=== PATIENT | male | born 1935 | race Caucasian/White ===

== ENCOUNTER 2016-02-19 10:06 | Day surgery (SDC) | payer MEDICARE ==
[2016-02-19] MEDS ORDERED: CEFAZOLIN SODIUM 2 GRAM PREMIX 100 ML IV PRN (10:30)
[2016-02-19] MEDS ORDERED: CEFAZOLIN SODIUM 2 GRAM PREMIX 100 ML IV ONE (11:26)
[2016-02-19] MEDS ORDERED: IV START KIT ONE (11:26)
[2016-02-19] MEDS ORDERED: LACTATED RINGERS 1,000 ML ONE ×2 (11:26→15:25)
[2016-02-19] MEDS ORDERED: MIDAZOLAM HCL 1 MG/ML 2ML VIAL ONE ×2 (12:30→13:49)
[2016-02-19] MEDS ORDERED: MIDAZOLAM HCL 5 MG/5 ML VIAL IV ONE (13:03)
[2016-02-19] MEDS ORDERED: OPIUM/BELLADONNA ALKALOIDS 1 EACH SUP PR ONE (13:45)
[2016-02-19] MEDS ORDERED: SPINAL PROCEDURAL TRAY 1 EACH ONE (13:47)
[2016-02-19] MEDS ORDERED: FENTANYL 5 ML ONE (13:49)
[2016-02-19] MEDS ORDERED: PROPOFOL 20 ML IV ONE (14:09)
[2016-02-19] MEDS ORDERED: ATROPINE SULFATE 0.4 MG/1 ML VIAL IV PRN (14:16)
[2016-02-19] MEDS ORDERED: FENTANYL 100 MCG/2 ML VIAL IV PRN (14:16)
[2016-02-19] MEDS ORDERED: NALOXONE HCL 0.4 MG/ML VIAL IV PRN (14:16)
[2016-02-19] MEDS ORDERED: ONDANSETRON 4 MG/2ML 2 ML VIAL IV PRN ×2 (14:16→16:02)
[2016-02-19] MEDS ORDERED: MEPERIDINE 25 MG/ML SYRINGE IV PRN (14:16)
[2016-02-19] MEDS ORDERED: MORPHINE SULFATE 4 MG/ML SYRINGE IV PRN ×2 (14:16→17:24)
[2016-02-19] MEDS ORDERED: LACTATED RINGERS 1,000 ML IV SCH (14:30)
[2016-02-19] MEDS ORDERED: EPHEDRINE SULFATE 50 MG/ML 1ML VIAL ONE (14:59)
[2016-02-19] MEDS ORDERED: SODIUM CHLORIDE 0.9% FLUSH 10 ML ONE (14:59)
[2016-02-19] MEDS ORDERED: OPIUM/BELLADONNA ALKALOIDS 1 EACH SUP PR PRN (16:02)
[2016-02-19] MEDS ORDERED: MORPHINE SULFATE 2 MG/ML SYRINGE IV PRN (16:02)
[2016-02-19] MEDS ORDERED: CYANOCOBALAMIN (VITAMIN B-12) 250 MCG TABLET PO SCH (16:02)
[2016-02-19] MEDS ORDERED: MENTHOL/CETYLPYRD 1 EACH LOZENGE PO PRN (16:02)
[2016-02-19] MEDS ORDERED: BISACODYL 10 MG SUP PR PRN (16:02)
[2016-02-19] MEDS ORDERED: BLISTEX LIPSTICK 1 EACH TP PRN (16:02)
--- NOTE | 2016-02-19 16:30 | OP ---
JANESSA OCONNOR [id number] DATE OF OPERATION: February 19, 2016 SURGEON: Porter Juarez M.D. PNP: None. ANESTHESIA: Spinal. 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 PROCEDURE: TRANSURETHRAL RESECTION OF THE PROSTATE. SPECIMENS: Chips of prostatic tissue. INDICATIONS: A 80-year-old man with a history of a transurethral vaporization type procedure in the past, presented with a complaint of severe lower urinary tract symptoms and a history of postoperative urinary retention. Urodynamic studies demonstrated very likely chronic detrusor damage with fluctuating intravesical pressure during voiding. Although the bladder neck did appear to be open, there was a sharp cutoff in the prostatic urethra more distally, and at cystoscopy a large ball of tissue was found based to the left and laterally at the more distal levels of the prostatic urethra. Due to the severity of his symptoms, he presents now for resection hoping that enough decrease in outlet resistance will be achieved to allow his compromised bladder to empty efficiently enough. FINDINGS: The urethra was notable for a wide caliber anular stricture in the bulb which was not obstructing and did admit the resectoscope with some gentle pressure. The membranous urethra appeared to be intact. The prostatic fossa was approximately 4 cm length and notable for a large mound of tissue protruding over the midline from the left toward the right based laterally and anteriorly to the left, with remnant or regrown tissue also involving the right apical region. The bladder neck itself appeared to be well open from his previous procedure and the actual tissue mass creating the current problem was situated more distally. Ureteral orifices normally disposed. Bladder wall moderately trabeculated. PROCEDURE: The patient was identified and brought to the operating room where spinal anesthetic was applied. Then he was placed in a dorsal lithotomy position. The genital region was prepared and draped sterilely. The distal urethra was calibrated with [place] sounds up to 30 Palestinian, and then a 27 Palestinian resectoscope sheath was introduced with the visual obturator. Findings are as reported above. Using saline as an irrigant and a loop bipolar cautery system, we began resection in the groove on the bladder neck side of the mass, and carefully resected the mass following the contours of the wall of what the resected prostate would look like normally. Once the left-sided tissues were completed, we then continued over the anterior surface where a shelf-like defect had been created and then proceed down the right apical tissue which was also growing back. Bleeding was controlled with cautery. Chips of tissue were removed through the resectoscope. At the end of the case, the fossa was symmetrically and widely resected, bleeding was sufficiently controlled and all visible chips had been removed. The resectoscope was then withdrawn, and a 24 Palestinian Steve catheter passed and left to gravity drainage with 40 mL of water in its balloon. Estimated blood loss was less than 50 mL. Resection time approximately 20 minutes. No early complications. Patient tolerated the procedure well and was taken in stable condition to the postanesthesia room. cc: Porter Juarez M.D. Gray Jaimes M.D.
[2016-02-19 16:57] VITALS: BMI 20.3
[2016-02-19] MEDS ORDERED: MORPHINE SULFATE 10 MG/ML SYRINGE IV PRN (17:24)
[2016-02-19] MEDS: PHENAZOPYRIDINE HCL 200 MG TABLET PO SCH ×2 (18:59→21:23)
[2016-02-19] MEDS: CYANOCOBALAMIN (VITAMIN B-12) 250 MCG TABLET PO SCH (19:00)
[2016-02-19] MEDS: ESCITALOPRAM 10 MG TABLET PO SCH (19:00)
[2016-02-19] MEDS ORDERED: SODIUM CHLORIDE 3 L IRRIG BAG 3,000 ML IR ONE ×2 (19:42→21:58)
[2016-02-19] MEDS ORDERED: POLYETHYLENE GLYCOL 3350 17 G POWD.SUSP PO SCH (21:00)
[2016-02-19] MEDS: HYDROCODONE/ACETAMINOPHEN 5/325MG TABLET PO PRN (21:23)
[2016-02-19] MEDS: DOCUSATE SODIUM 250 MG CAPSULE PO SCH (21:23)
[2016-02-20 08:05] VITALS: BP 168/91
[2016-02-20] MEDS: DOCUSATE SODIUM 250 MG CAPSULE PO SCH (08:42)
[2016-02-20] MEDS: ESCITALOPRAM 10 MG TABLET PO SCH (08:42)
[2016-02-20] MEDS: CYANOCOBALAMIN (VITAMIN B-12) 250 MCG TABLET PO SCH (08:42)
[2016-02-20] MEDS: PHENAZOPYRIDINE HCL 200 MG TABLET PO SCH (08:42)
[2016-02-20] MEDS: HYDROCODONE/ACETAMINOPHEN 5/325MG TABLET PO PRN (14:12)
--- NOTE | 2016-02-21 13:35 | SURGPATH ---
[facility] [address] [place] [id number] Patient Name: JANESSA OCONNOR MR#: [id number] : 1935 Gender: M Specimen #: [id number] Collected: 02/19/2016 Received: 02/20/2016 Reported: 02/21/2016 Submitting Phys: EVIN WAKEFIELD Copy To Phys: [facility] ABILIO JANE Clinical History / Pre-Operative Diagnosis: BLADDER OUTLET OBSTRUCTION DUE TO ENLARGED PROSTATE Specimen Source / Surgical Procedure Performed: PROSTATE CHIPS Interpretation: TRANSURETHRAL RESECTION, PROSTATE CHIPS: - FIBROGLANDULAR HYPERPLASIA WITH FOCAL CHRONIC INFLAMMATION. - NO MALIGNANCY IDENTIFIED. Electronically Signed Out Bree Lisa M.D. Gross Description: The specimen is received in a formalin filled container labeled with the patient's name and "prostate chips". An aggregate of rubbery samaniego tissue fragments is 3.5 x 3.0 0.6 cm and approximately 2 g. Totally embedded in cassettes A-C. German Moreno Microscopic Description: Sections of entire specimen are examined. The prostate chips show nodular areas of glandular and stromal hyperplasia as well as foci of chronic inflammation. No malignancy is identified. 1: [id number] N40.1
== END 2016-02-20 15:08 | disposition home or self-care (01) ==
LOC: SDC 10:06 → MS 16:23 → SDC 02-20 15:08
PROVIDERS: ATTEND Urology
PROC: 0VB08ZZ Excision of Prostate, Via Natural or Artificial Opening Endoscopic (ICD-10-PCS; principal; 2016-02-20)
DX: N40.1 Benign prostatic hyperplasia with lower urinary tract symptoms (principal); N13.8 Other obstructive and reflux uropathy; I71.4 Abdominal aortic aneurysm, without rupture; J44.9 Chronic obstructive pulmonary disease, unspecified; M19.91 Primary osteoarthritis, unspecified site; K21.9 Gastro-esophageal reflux disease without esophagitis; Z87.891 Personal history of nicotine dependence
CPT/HCPCS: 52601; A9270 ×11; J3010; J2250 ×2; J7120 ×2; J0690